=== PATIENT | female | born 1980 | race Caucasian/White ===

== ENCOUNTER 2020-12-31 09:52 | Emergency (ER) | payer MEDICAID ==
[~2020-12-31] VITALS: Ht 170.2 cm; Wt 80.0 kg
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
--- NOTE | 2020-12-31 10:39 | NUR ---
PT SLEEPING ON GURNEY, RESPIRATION EVEN AND UNLABORED. NO NEEDS AT THIS TIME
[2020-12-31] MEDS ORDERED: SODIUM CHLORIDE 0.9% 1,000ML IVBOLUS ONE ×2 (11:00→12:30)
--- NOTE | 2020-12-31 11:23 | NUR ---
PT SITTING ON GURNEY, FOOD TRAY GIVEN. PT DRANK 2X JUICES. 70% OF FOOD TRAY EATEN
[2020-12-31 12:41] LABS: BASOPHILS % (AUTO) 1 % (0-1); EOSINOPHILS % (AUTO) 0 % (1-7); LYMPHOCYTES % (AUTO) 29 % (22-44); MEAN CORPUSCULAR HEMOGLOBIN 32.4 pg (27.0-34.8); MEAN CORPUSCULAR HGB CONC 33.8 g/dL (32.4-35.8); MEAN PLATELET VOLUME 7.6 fL (7.4-10.4); MONOCYTES % (AUTO) 4 % (2-9); NEUTROPHILS % (AUTO) 66 % (42-75); PLATELET COUNT 266 x10^3/uL (130-400); RED BLOOD COUNT 4.26 x10^6/uL (3.82-5.3); RED CELL DISTRIBUTION WIDTH 13.9 % (9.6-15.2)
[2020-12-31 12:49] LABS: MD NO
[2020-12-31 12:50] LABS: ALANINE AMINOTRANSFERASE 24 U/L (12-78); ALBUMIN 3.4 g/dL (3.4-5.0); ANION GAP 7 mmol/L (5-15); CALCIUM 7.6 mg/dL (8.5-10.1); CHLORIDE 112 mmol/L (98-107); CREATININE 0.57 mg/dL (0.55-1.02)
[2020-12-31 12:52] LABS: ALKALINE PHOSPHATASE 62 U/L (45-117); BILIRUBIN,TOTAL 0.2 mg/dL (0.2-1.0); TOTAL PROTEIN 6.6 g/dL (6.4-8.2)
--- NOTE | 2020-12-31 13:09 | NUR ---
PT SLEEPING ON GURNEY, RESPIRATIONS EVEN AND UNLABORED. NAD. NO NEEDS AT THIS TIME
--- NOTE | 2020-12-31 13:47 | NUR ---
BREAK RN NOTE: PT SLEEPING, RESPS EVEN AND UNLABORED. SINUS TACH RATE 90'S WITH NO ECTOPY. FINGERSTICK GLUCOSE 80 CHECKED AND REPORTED TO EDMD LAW. NO ORDERS REVIEWED.
--- NOTE | 2020-12-31 13:58 | NUR ---
PT SITTING ON GURNEY, SANDWICH AND JUICE PROVIDED. NAD/VSS Addendum: 12/31/20 at 1506 by [email or web address] PT SITTING ON GURNEY, SANDWICH AND JUICE PROVIDED. PT ATE 70% SANDWICH AND DRANK 2 JUICES. NAD/VSS
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
[2020-12-31 15:53] VITALS: BP 92/49
--- NOTE | 2020-12-31 15:56 | NUR ---
Patient given discharge instructions and they have confirmed that they understand the instructions. Patient ambulatory with steady gait.
== END 2020-12-31 16:01 | disposition home or self-care (01) ==
LOC: ED 16:00
DX: E16.2 Hypoglycemia, unspecified (principal); F10.220 Alcohol dependence with intoxication, uncomplicated; R41.82 Altered mental status, unspecified; F17.210 Nicotine dependence, cigarettes, uncomplicated; Y90.0 Blood alcohol level of less than 20 mg/100 ml
CPT/HCPCS: 80053; 82962; 85025; 99285; 99406; J7030

== ENCOUNTER 2021-01-24 07:21 | Emergency (ER) | payer MEDICAID ==
[~2021-01-24] VITALS: Ht 170.2 cm; Wt 60.3 kg
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
--- NOTE | 2021-01-24 08:55 | NUR ---
GOT PATIENT BLANKET AND FOOD.
--- NOTE | 2021-01-24 09:24 | NUR ---
PATIENT IN CT COLLAR. PATIENT RETURNED FROM RADIOLOGY.
[2021-01-24] MEDS ORDERED: MECLIZINE CHEWABLE 25 MG TAB PO ONE (10:30)
[2021-01-24] MEDS ORDERED: HYDROcodone/APAP 5/325 TABLET PO ONE (10:30)
[2021-01-24] MEDS ORDERED: HYDROcodone/APAP 5/325 TABLET ONE (10:44)
[2021-01-24] MEDS ORDERED: MECLIZINE CHEWABLE 25 MG TAB ONE (10:44)
--- NOTE | 2021-01-24 10:49 | NUR ---
ORDERED MEAL TRAY WHILE WAITING FOR
--- NOTE | 2021-01-24 12:04 | NUR ---
DISCHARGE REVIEWED, GOT PATIENT TAXI VOUCHER.
[2021-01-24 12:05] VITALS: BP 122/78
--- NOTE | 2021-01-24 12:18 | NUR ---
GOT TAXI VOUCHER
== END 2021-01-24 12:20 | disposition home or self-care (01) ==
LOC: ED 07:44
DX: S06.0X9A Concussion with loss of consciousness of unspecified duration, initial encounter (principal); S02.32XA Fracture of orbital floor, left side, initial encounter for closed fracture; S02.832A Fracture of medial orbital wall, left side, initial encounter for closed fracture; S16.1XXA Strain of muscle, fascia and tendon at neck level, initial encounter; S30.811A Abrasion of abdominal wall, initial encounter; R11.0 Nausea; R42 Dizziness and giddiness; Y08.89XA Assault by other specified means, initial encounter; Y93.89 Activity, other specified; Y92.89 Other specified places as the place of occurrence of the external cause; Y99.8 Other external cause status
CPT/HCPCS: 70450; 70486; 72125; 93005; 99285

== ENCOUNTER 2021-02-04 05:21 | Emergency (ER) | payer MEDICAID ==
[~2021-02-04] VITALS: Ht 170.2 cm; Wt 70.0 kg
[2021-02-04] MEDS ORDERED: ACETAMINOPHEN 500 MG TABLET ONE (05:55)
[2021-02-04] MEDS ORDERED: ACETAMINOPHEN 500 MG TABLET PO ONE (06:00)
--- NOTE | 2021-02-04 06:48 | NUR ---
REPORT TO [facility]
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
--- NOTE | 2021-02-04 08:14 | NUR ---
PT RESTING IN [facility] AT THIS TIME, MONTIORING IN PLACE, [place].
--- NOTE | 2021-02-04 09:00 | NUR ---
REPORT FROM [facility]
[2021-02-04 09:01] VITALS: BP 112/68
--- NOTE | 2021-02-04 09:16 | NUR ---
PT RESTING IN GURNEY W EYES CLOSED. EVEN/REGULAR RESPIRATIONS NOTED. SPO2 >90% ON RA. PT ARROUSABLE TO VOICE AND EASILY CONVERSES; SPEECH SLURRED. PT STATES THAT SHE KNOWNS NO ONE WHO CAN PICK HER UP FROM ED. BP/SPO2 MONITORING IN PLACE.
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
== END 2021-02-04 09:59 | disposition home or self-care (01) ==
LOC: ED 05:37
DX: F10.221 Alcohol dependence with intoxication delirium (principal); M54.5 Low back pain; Z90.49 Acquired absence of other specified parts of digestive tract; Y90.0 Blood alcohol level of less than 20 mg/100 ml
CPT/HCPCS: 99283